=== PATIENT | female | born 1940 | race Caucasian/White ===

== ENCOUNTER 2020-08-10 12:46 | Day surgery (SDC) | payer MEDICARE, BC ==
[~2020-08-10] VITALS: Ht 167.6 cm; Wt 59.4 kg
[~2020-08-10 12:46] MED LIST: CALC-192 PO; CARB1TAB47 PO; CARB25TA3 PO; CHOL10003 PO; CYAN1TAB29 PO; CYCL1DRO EACHEYE; ESTR-22 TD; FLUT9.9S NS; LANS30CA PO; LEVO75TA5 PO; POLY17PO5 PO
[2020-08-10] MEDS ORDERED: CHLORHEXIDINE 15 ML UDC ONE (13:21)
[2020-08-10] MEDS ORDERED: CHLORHEXIDINE 15 ML UDC PO ONE (13:30)
[2020-08-10] MEDS ORDERED: LACTATED RINGERS 1,000 ML IV SCH (13:30)
[2020-08-10 13:33] VITALS: BP 167/78
[2020-08-10] MEDS ORDERED: PROPOFOL 50 ML ONE (14:57)
[2020-08-10] MEDS ORDERED: ACETAMINOPHEN 325 MG TABLET PO PRN (15:00)
[2020-08-10] MEDS ORDERED: FENTANYL PF 100 MCG/2ML IV PRN (15:00)
[2020-08-10] MEDS ORDERED: ONDANSETRON 2MG/ML, 2ML IVPush PRN (15:00)
[2020-08-10] MEDS ORDERED: OMNIPAQUE 350 MG/ML, 50 ML BOTTLE ONE (15:25)
== END 2020-08-10 17:20 | disposition home or self-care (01) ==
LOC: OUT 12:46
PROVIDERS: ATTEND Internal Medicine Geriatric Medicine
DX: K31.1 Adult hypertrophic pyloric stenosis (principal); E03.9 Hypothyroidism, unspecified; G20 Parkinson's disease; Z20.822 Contact with and (suspected) exposure to COVID-19; Z79.899 Other long term (current) drug therapy
CPT/HCPCS: 43245; 74018; 93005; C1725; J2704; J7120; Q9967; U0003; U0005; 76000

== ENCOUNTER → 2020-08-27 | Outpatient (CLI) | payer MEDICARE, BC | END | disposition home or self-care (01) | LOC: STAR 10:28 | PROVIDERS: ATTEND Internal Medicine Geriatric Medicine | DX: Z20.822 Contact with and (suspected) exposure to COVID-19 (principal) | CPT/HCPCS: U0003; U0005 ==

== ENCOUNTER 2020-08-31 10:47 | Day surgery (SDC) | payer MEDICARE, BC ==
[~2020-08-31] VITALS: Ht 167.6 cm; Wt 59.2 kg
[2020-08-31] MEDS ORDERED: OXYcodone 5 MG/5 ML ORAL.SOL UDC PO PRN (11:30)
[2020-08-31] MEDS ORDERED: ONDANSETRON 2MG/ML, 2ML IVPush PRN (11:30)
[2020-08-31] MEDS ORDERED: ACETAMINOPHEN 325 MG TABLET PO PRN (11:30)
[2020-08-31] MEDS ORDERED: FENTANYL PF 100 MCG/2ML IV PRN (11:30)
[2020-08-31] MEDS ORDERED: CARBIDOPA/LEVODOPA 25 MG/100 MG TABLET PO STA (11:41)
[2020-08-31] MEDS ORDERED: CHLORHEXIDINE 15 ML UDC ONE (11:54)
[2020-08-31] MEDS ORDERED: LACTATED RINGERS 1,000 ML IV SCH (12:00)
[2020-08-31] MEDS ORDERED: CHLORHEXIDINE 15 ML UDC PO ONE (12:00)
[2020-08-31] MEDS ORDERED: FENTANYL PF 100 MCG/2ML ONE (12:02)
[2020-08-31 12:09] VITALS: BP 171/75
[2020-08-31] MEDS ORDERED: LIDOCAINE 1%, 20ML ONE (12:12)
[2020-08-31] MEDS ORDERED: PROPOFOL 10 MG/ML, 20ML ONE (12:12)
== END 2020-08-31 14:15 | disposition home or self-care (01) ==
LOC: OUT 10:47
PROVIDERS: ATTEND Internal Medicine Geriatric Medicine
DX: K31.1 Adult hypertrophic pyloric stenosis (principal); K21.9 Gastro-esophageal reflux disease without esophagitis; E03.9 Hypothyroidism, unspecified; G20 Parkinson's disease
CPT/HCPCS: 43245; C1725; J2704; J3010; J7120

== ENCOUNTER → 2020-11-12 | Outpatient (CLI) | payer MEDICARE, BC | END | disposition home or self-care (01) | LOC: STAR 12:55 | PROVIDERS: ATTEND Internal Medicine | DX: Z01.818 Encounter for other preprocedural examination (principal); K31.1 Adult hypertrophic pyloric stenosis; R00.1 Bradycardia, unspecified | CPT/HCPCS: 93005 ==

== ENCOUNTER 2020-11-23 08:02 | Day surgery (SDC) | payer MEDICARE, BC ==
[~2020-11-23] VITALS: Ht 162.6 cm; Wt 59.0 kg
[2020-11-23] MEDS ORDERED: LACTATED RINGERS 1,000 ML IV SCH (08:30)
[2020-11-23] MEDS ORDERED: CHLORHEXIDINE 15 ML UDC PO ONE (08:30)
[2020-11-23 08:31] VITALS: BP 152/74
[2020-11-23] MEDS ORDERED: CHLORHEXIDINE 15 ML UDC ONE (08:47)
[2020-11-23] MEDS ORDERED: PROPOFOL 10 MG/ML, 20ML ONE (10:47)
== END 2020-11-23 12:15 | disposition home or self-care (01) ==
LOC: OUT 08:02
PROVIDERS: ATTEND Internal Medicine
DX: K31.1 Adult hypertrophic pyloric stenosis (principal); K31.7 Polyp of stomach and duodenum; K21.9 Gastro-esophageal reflux disease without esophagitis; E03.9 Hypothyroidism, unspecified; G20 Parkinson's disease
CPT/HCPCS: 43245; C1725; J2704; J7120